=== PATIENT | female | born 1960 | race American Indian/Alaskan Native ===

== ENCOUNTER 2018-03-02 17:48 | Emergency (ER) | payer BC ==
[2018-03-02 18:03] VITALS: BP 160/72
--- NOTE | 2018-03-02 19:30 | Emergency Department Report ---
- General Chief complaint: Skin/Abscess/Foreign Body Stated complaint: SPIDER BITE/PAIN/DIABETIC Time Seen by Provider: 03/02/18 19:11 Source: patient Mode of arrival: Ambulatory Limitations: No Limitations - History of Present Illness Initial comments: Itchy 7-year-old -[place]er female with a past medical history of hypertension diabetes and asthma comes in concerned that a spider may have bitten her right breast. Patient reports that the sore has been there for 2 weeks. Patient voices she's tried to treat at home but is still given her pain. Patient reports that at first it was a bump to head purulent material which she was able to express. Patient reports that she is still having a dull ache in her right breasts. Patient has not taken anything for pain. And this is going on we'd #2 as of Sunday. Patient is requesting antibiotics. MD complaint: insect bite/sting -: week(s) (2) Location: chest Severity: mild (right breast) Quality: burning Consistency: intermittent Worsens with: palpation Associated symptoms: denies other symptoms Treatments Prior to Arrival: attempted to drain pus at, OTC topical medication, antibiotic - Related Data Previous Rx's Medication Instructions Recorded Last Taken Type Amoxicillin/K Clav Tab [Augmentin 1 tab PO Q12HR #10 tab 03/02/18 Unknown Rx 875 mg] Allergies Allergy/AdvReac Type Severity Reaction Status Date / Time codeine Allergy Vomiting Verified 03/02/18 17:56 methocarbamol [From Robaxin] Allergy Unknown Verified 03/02/18 17:56 Sulfa (Sulfonamide Allergy Hives Verified 03/02/18 17:56 Antibiotics) Abscess Boil HPI - HPI Chief Complaint: Skin/Abscess/Foreign Body Stated Complaint: SPIDER BITE/PAIN/DIABETIC Time Seen by Provider: 03/02/18 19:11 Home Medications: Previous Rx's Medication Instructions Recorded Last Taken Type Amoxicillin/K Clav Tab [Augmentin 1 tab PO Q12HR #10 tab 03/02/18 Unknown Rx 875 mg] Allergies/Adverse Reactions: Allergies Allergy/AdvReac Type Severity Reaction Status Date / Time codeine Allergy Vomiting Verified 03/02/18 17:56 methocarbamol [From Robaxin] Allergy Unknown Verified 03/02/18 17:56 Sulfa (Sulfonamide Allergy Hives Verified 03/02/18 17:56 Antibiotics) ED Review of Systems ROS: Stated complaint: SPIDER BITE/PAIN/DIABETIC Other details as noted in HPI Comment: All other systems reviewed and negative Skin: lesions (right breast) ED Past Medical Hx - Past Medical History Previous Medical History?: Yes Hx Hypertension: Yes Hx Diabetes: Yes Hx Asthma: Yes Additional medical history: ANGINA - Surgical History Additional Surgical History: HIP SURGERY BACK SURGERY - Social History Smoking Status: Never Smoker Substance Use Type: None - Medications Home Medications: Home Medications Medication Instructions Recorded Confirmed Last Taken Type Amoxicillin/K Clav Tab [Augmentin 1 tab PO Q12HR #10 tab 03/02/18 Unknown Rx 875 mg] ED Physical Exam - General Limitations: No Limitations General appearance: alert, in no apparent distress - Head Head exam: Present: atraumatic, normocephalic - Eye Eye exam: Present: EOMI - ENT ENT exam: Present: mucous membranes moist - Neurological Exam Neurological exam: Present: alert, oriented X3 - Psychiatric Psychiatric exam: Present: normal affect, normal mood - Expanded Skin Exam Expanded Type of lesion: Present: other (will heal macular papular lesion with no erythematous non-edematous no purulent discharge no induration or fluctuation) Distribution of rash: chest (right breast) Description of rash: Present: tenderness ED Course Vital Signs 03/02/18 17:56 Temperature 98 F Pulse Rate 96 H Respiratory 18 Rate Blood Pressure 160/72 O2 Sat by Pulse 100 Oximetry ED Medical Decision Making - Medical Decision Making Patient has been evaluated by this provider fast track. Discussed the patient that it appears that this lesion or bite is healing well. Patient's nursing home assistant on having antibiotics. I discussed with her all place her on Augmentin 875 twice a day for 5 days and for her to follow up with her primary care provider on Sunday to decide if she needs to continue with his antibiotics. I also discussed the patient to take [id number] Motrin or Tylenol for pain. Patient verbalized understanding. Critical care attestation.: If time is entered above; I have spent that time in minutes in the direct care of this critically ill patient, excluding procedure time. ED Disposition Clinical Impression: Skin lesion of breast Disposition: DC-01 TO HOME OR SELFCARE Is pt being admited?: No Does the pt Need Aspirin: No Condition: Stable Instructions: Amoxicillin/Clavulanate Potassium (By mouth), Acute Wound Care ( ED) Additional Instructions: Please complete antibiotics as prescribed. [id number]-[id number] pain medication such as Motrin and Tylenol or Advil for pain management. Please keep your appointment with her primary care provider on Sunday to have them reevaluate your sore. Prescriptions: Amoxicillin/K Clav Tab [Augmentin 875 mg] 1 tab PO Q12HR #10 tab Referrals: PRIMARY CARE, [Primary Care Provider] - 3-5 Days Forms: Work/School Release Form(ED)
== END 2018-03-02 19:55 | disposition home or self-care (01) ==
LOC: ED 17:48
DX: L98.8 Other specified disorders of the skin and subcutaneous tissue (principal); I10 Essential (primary) hypertension; E11.9 Type 2 diabetes mellitus without complications; J45.909 Unspecified asthma, uncomplicated; Z88.5 Allergy status to narcotic agent; Z88.2 Allergy status to sulfonamides; Z88.8 Allergy status to other drugs, medicaments and biological substances
CPT/HCPCS: 82962; 99282

== ENCOUNTER 2019-06-28 21:13 | Emergency (ER) | payer OTHER, BC ==
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
[2019-06-29 01:38] VITALS: BP 136/72
[2019-06-29] MEDS ORDERED: HYDROcodone/ACETAMINOPHEN 5-325 MG TAB PO ONE (01:50)
[2019-06-29] MEDS ORDERED: ONDANSETRON 4 MG ODT TAB PO ONE (01:50)
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
== END 2019-06-29 02:47 | disposition home or self-care (01) ==
LOC: ED 21:13
DX: S29.019A Strain of muscle and tendon of unspecified wall of thorax, initial encounter (principal); S16.1XXA Strain of muscle, fascia and tendon at neck level, initial encounter; I10 Essential (primary) hypertension; E11.9 Type 2 diabetes mellitus without complications; J45.909 Unspecified asthma, uncomplicated; Z88.1 Allergy status to other antibiotic agents; Z98.890 Other specified postprocedural states; Z79.899 Other long term (current) drug therapy; Z88.8 Allergy status to other drugs, medicaments and biological substances; V89.1XXA Person injured in unspecified nonmotor-vehicle accident, nontraffic, initial encounter; Y93.89 Activity, other specified; Y92.89 Other specified places as the place of occurrence of the external cause; Y99.8 Other external cause status
CPT/HCPCS: 70450; 72040; 72072; Q0162